=== PATIENT | female | born 1965 | race American Indian/Alaskan Native ===

== ENCOUNTER 2016-03-30 06:22 | Emergency (ER) | payer OTHER ==
--- NOTE | 2016-03-30 07:52 | Cat Scan Report ---
FINAL REPORT PROCEDURE: CT FACIAL BONES WO CON TECHNIQUE: Computerized tomography of the facial bones and soft tissues with axial and coronal sections performed from the cranial aspect of the frontal sinuses to the caudal portion of the mandible without contrast material. HISTORY: Facial bone trauma. Injury, nose deformity COMPARISON: No prior studies are available for comparison. FINDINGS: Bones: There is an acute transverse impacted depressed fracture across the bridge of the nasal bone. There is no CT evidence of additional facial bone fracture.. Paranasal sinuses: There may be mild patchy mucosal thickening in the ethmoid air cells. The paranasal sinuses appear clear otherwise.. Soft tissues: No significant abnormality. Other: None. IMPRESSION: There is an acute transverse impacted depressed fracture across the bridge of the nasal bone.
--- NOTE | 2016-03-30 08:19 | Emergency Department Report ---
HPI - General Chief Complaint: Wound/Laceration Time Seen by Provider: 03/30/16 08:08 - HPI HPI: This is a 50-year-old Afro-[place]iquais female who works here at [facility] [employer] in [employer] and presents to the emergency department after a cart she was using tipped over and hit her in the face and nose at 6:20 AM this morning, about 2 hours ago. Since that time the patient has had pain and some slight deformity to the bridge of the nose. She denies pain anywhere else. She denies any loss of consciousness. She has not taken anything for symptoms prior to presentation. She has a history of hypertension and high cholesterol for which she takes medications. She has a primary care doctor. She is up-to- date with tetanus. There is a very small laceration or abrasion to the bridge of the nose as well where the cart hit her. She denies any significant difficulty breathing out of her nose. She denies any vision change or headache. ED Past Medical Hx - Past Medical History Hx Hypertension: Yes Additional medical history: Irritable Bowel Syndrome, High Choleserol, vertigo - Surgical History Hx Cholecystectomy: Yes Additional Surgical History: hysterectomy - Social History Smoking Status: Never Smoker Substance Use Type: Alcohol - Medications Home Medications: Home Medications Medication Instructions Recorded Confirmed Last Taken Type Lisinopril [Lisinopril] 20 mg PO DAILY 09/30/14 10/05/14 10/05/14 History Simvastatin [Simvastatin] 20 mg PO DAILY 09/30/14 10/05/14 10/04/14 History HYDROcodone/APAP 5-325 [Palmetto 1 each PO Q6HR PRN #16 tablet 03/30/16 Unknown Rx 5/325] ED Review of Systems ROS: Stated complaint: FACIAL LAC Other details as noted in HPI Comment: All other systems reviewed and negative Constitutional: denies: chills, fever Eyes: denies: eye pain, eye discharge, vision change ENT: other (nasal fracture). denies: ear pain Respiratory: denies: cough, shortness of breath, wheezing Cardiovascular: denies: chest pain, palpitations Gastrointestinal: denies: abdominal pain, nausea, diarrhea Genitourinary: denies: urgency, dysuria, discharge Musculoskeletal: denies: back pain, joint swelling, arthralgia Skin: other (abrasion/laceration). denies: rash Neurological: denies: headache, weakness, paresthesias Physical Exam - Physical Exam Vital Signs: Vital Signs 03/30/16 03/30/16 03/30/16 06:43 06:45 08:02 Temperature 97 F L Pulse Rate 100 H Respiratory 16 16 Rate Blood Pressure 148/89 [Left] O2 Sat by Pulse 100 100 100 Oximetry 03/30/16 08:03 Temperature 98.3 F Pulse Rate 101 H Respiratory 15 Rate Blood Pressure 140/78 [Left] O2 Sat by Pulse 100 Oximetry Physical Exam: GENERAL: The patient is well-developed well-nourished. HEENT: Normocephalic. Atraumatic. Extraocular motions are intact. Patient has moist mucous membranes. Pupils equal reactive to light bilaterally. Patient has a depression to the upper third of the nasal bridge consistent with a nasal bone fracture. There is some nonpitting swelling and some ecchymosis in this region. There is also a very small abrasion to the top of the bridge of the nose that is not bleeding and does not appear infected. There is no septal hematoma. Oropharynx is clear. NECK: Supple. Trachea is midline. CHEST/LUNGS: Clear to auscultation. There is no respiratory distress noted. HEART/CARDIOVASCULAR: Regular. There is no tachycardia. There is no gallop rub or murmur. ABDOMEN: Abdomen is soft, nontender. Patient has normal bowel sounds. There is no abdominal distention. SKIN: TPatient has a depression to the upper third of the nasal bridge consistent with a nasal bone fracture. There is some nonpitting swelling and some ecchymosis in this region. There is also a very small abrasion to the top of the bridge of the nose that is not bleeding and does not appear infected. NEURO: The patient is awake, alert, and oriented. The patient is cooperative. The patient has no focal neurologic deficits. The patient has normal speech. MUSCULOSKELETAL: There is no tenderness or deformity. There is no limitation range of motion. There is no evidence of acute injury. ED Course Vital Signs 03/30/16 03/30/16 03/30/16 06:43 06:45 08:02 Temperature 97 F L Pulse Rate 100 H Respiratory 16 16 Rate Blood Pressure 148/89 [Left] O2 Sat by Pulse 100 100 100 Oximetry 03/30/16 08:03 Temperature 98.3 F Pulse Rate 101 H Respiratory 15 Rate Blood Pressure 140/78 [Left] O2 Sat by Pulse 100 Oximetry - Consultations Consultation #1: Spoke with the facial plastics surgeon, Dr. Wisdom, regarding the patient's nasal bone fracture. Since the patient appears stable and without any other facial fractures, Dr. Wisdom would like to see the patient on Saturday for a consultation in which the patient will then get set up for a closed nasal bone fracture reduction and/or surgical repair. 03/30/16 09:23 ED Medical Decision Making - Radiology Data Radiology results: report reviewed CT of the facial bones without contrast shows an acute transverse impacted depressed fracture across the bridge of the nasal bone. - Medical Decision Making 50-year-old female has a depressed and impacted nasal bone fracture after a large cart fell over onto her face. There was no other facial fractures. She does not complain of any loss of consciousness or any headache or any neurological deficits. Patient was given some pain control. Facial plastics was contacted and would like to see the patient on Saturday. All the imaging results and the plan for follow-up with facial plastics was discussed with the patient and she understands and agrees to the plan. - Differential Diagnosis nasal bone fracture, contusion, orbital fracture, concussion Critical Care Time: No Critical care attestation.: If time is entered above; I have spent that time in minutes in the direct care of this critically ill patient, excluding procedure time. ED Disposition Clinical Impression: Nasal bone fracture Qualifiers: Encounter type: initial encounter Fracture type: closed Qualified Code(s): S02.2XXA - Fracture of nasal bones, initial encounter for closed fracture Facial trauma Qualifiers: Encounter type: initial encounter Qualified Code(s): S09.93XA - Unspecified injury of face, initial encounter Disposition: DISCHARGED TO HOME OR SELFCARE Is pt being admited?: No Does the pt Need Aspirin: No Condition: Stable Instructions: Nasal Fracture (ED) Additional Instructions: Please call Dr. Wisdom, the facial plastics physician, in his office today to set up an appointment for April 03. Return to the emergency department with any worsening of your symptoms or any acute distress. You can use ice over the next 48 hours at 20 minute intervals, but do not place the ice directly against her skin. You can expect to see some bruising around the nose and around the eyes and that may worsen over the next 2 days but there was no other fractures seen on the CT scan of your face. You've been prescribed a medication that is sedating. Therefore this medication cannot be mixed with alcohol, or taken prior to driving, working, or being responsible for children. Prescriptions: HYDROcodone/APAP 5-325 [Palmetto 5/325] 1 each PO Q6HR PRN #16 tablet PRN Reason: Pain Referrals: PRIMARY CAREMD [Primary Care Provider] - 3-5 Days ERIC WISDOM MD [Staff Physician] - 3-5 Days Time of Disposition: 09:27
[2016-03-30] MEDS ORDERED: PERCOCET 5/325 PO ONE (08:26)
[2016-03-30 10:02] VITALS: BP 125/100
[2016-03-30] MEDS ORDERED: ZOFRAN IV ONE (10:08)
[2016-03-30] MEDS ORDERED: ZOFRAN ODT ONE (10:20)
[2016-03-30] MEDS ORDERED: ZOFRAN ODT PO ONE (10:25)
== END 2016-03-30 11:00 | disposition home or self-care (01) ==
LOC: ED 06:22
DX: S02.2XXA Fracture of nasal bones, initial encounter for closed fracture (principal); S01.21XA Laceration without foreign body of nose, initial encounter; I10 Essential (primary) hypertension; E78.00 Pure hypercholesterolemia, unspecified; W22.8XXA Striking against or struck by other objects, initial encounter; Y93.9 Activity, unspecified; Y99.9 Unspecified external cause status; Y92.89 Other specified places as the place of occurrence of the external cause
CPT/HCPCS: 70486; Q0162